=== PATIENT | female | born 1965 | race Caucasian/White ===

== ENCOUNTER 2016-06-14 13:53 | Emergency (ER) | payer MEDICARE, OTHER | END 2016-06-14 16:45 | disposition home or self-care (01) | LOC: ER 13:53 | DX: S21.111A Laceration without foreign body of right front wall of thorax without penetration into thoracic cavity, initial encounter (principal); Z23 Encounter for immunization; W25.XXXA Contact with sharp glass, initial encounter | CPT/HCPCS: 90471 ==